=== PATIENT | male | born 1990 | race African-American/Black ===

== ENCOUNTER 2017-10-30 05:05 | Emergency (ER) | payer OTHER ==
[2017-10-30] MEDS ORDERED: AZITHROMYCIN 250 MG TABLET PO ONE (06:31)
[2017-10-30] MEDS ORDERED: AZITHROMYCIN 250 MG TABLET ONE (06:52)
--- NOTE | 2017-10-30 07:19 | ER Document Report ---
ED General - General Chief Complaint: Ear Pain Stated Complaint: ear pain Time Seen by Provider: 10/30/17 06:09 Mode of Arrival: Ambulatory Information source: Patient Notes: 27-year-old male presents with complaints of left earache of approximately 4 day duration. 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 He denies any fevers but admits to hot and cold flashes. He denies any recent ear infections or any infections Patient denies any drainage from the ear TRAVEL OUTSIDE OF THE [place] IN LAST 30 DAYS: No - HPI Onset: Other Onset/Duration: Persistent Quality of pain: Achy Severity: Mild Pain Level: 1 Associated symptoms: Earache Exacerbated by: Denies Relieved by: Denies Similar symptoms previously: No Recently seen / treated by doctor: No - Related Data Allergies/Adverse Reactions: Potassium Clavulanate * [From Augmentin] Adverse Reaction (Intermediate, Verified 04/28/14 17:40) Diarrhea amoxicillin trihydrate [From Augmentin] Adverse Reaction (Verified 04/28/14 17: 40) Diarrhea Past Medical History - Social History Smoking Status: Current Every Day Smoker Cigarette use (# per day): Yes Chew tobacco use (# tins/day): No Smoking Education Provided: No Frequency of alcohol use: None Drug Abuse: None Family History: CAD Patient has suicidal ideation: No Patient has homicidal ideation: No Renal/ Medical History: Denies: Hx Peritoneal Dialysis Past Surgical History: Reports: Hx Orthopedic Surgery - left X2, right X1 - Immunizations Hx Diphtheria, Pertussis, Tetanus Vaccination: Yes Review of Systems - Review of Systems Notes: REVIEW OF SYSTEMS: CONSTITUTIONAL : Denies fever, chills, or sweats. Denies recent illness. EENT: Admits to left earache CARDIOVASCULAR: Denies chest pain. Denies palpitations or racing or irregular heart beat. Denies ankle edema. RESPIRATORY: Denies cough, cold, or chest congestion. Denies shortness of breath, difficulty breathing, or wheezing. GASTROINTESTINAL: Denies abdominal pain or distention. Denies nausea, vomiting , or diarrhea. Denies blood in vomitus, stools, or per rectum. Denies black, tarry stools. Denies constipation. GENITOURINARY: Denies difficulty urinating, painful urination, burning, frequency, blood in urine, or discharge. MUSCULOSKELETAL: Denies back or neck pain or stiffness. Denies joint pain or swelling. SKIN: Denies rash, lesions or sores. HEMATOLOGIC : Denies easy bruising or bleeding. LYMPHATIC: Denies swollen, enlarged glands. NEUROLOGICAL: Denies confusion or altered mental status. Denies passing out or loss of consciousness. Denies dizziness or lightheadedness. Denies headache. Denies weakness or paralysis or loss of use of either side. Denies problems with gait or speech. Denies sensory loss, numbness, or tingling. Denies seizures. PSYCHIATRIC: Denies anxiety or stress. Denies depression, suicidal ideation, or homicidal ideation. ALL OTHER SYSTEMS REVIEWED AND NEGATIVE. Dictation was performed using [email or web address] voice recognition software PHYSICAL EXAMINATION: GENERAL: Well-appearing, well-nourished and in no acute distress. HEAD: Atraumatic, normocephalic. EYES: Pupils equal round extraocular movements intact, conjunctiva are normal. ENT: Right TM is erythematous left TM is dull in appearance erythematous loss of light reflex there is no tenderness over the mastoid process NECK: Normal range of motion LUNGS: No respiratory distress Musculoskeletal: Normal range of motion NEUROLOGICAL: Normal speech, normal gait. PSYCH: Normal mood, normal affect. SKIN: Warm, Dry, normal turgor, no rashes or lesions noted. Course - Re-evaluation Re-evalutation: 10/30/17 06:45 Patient's presentation is most consistent with an otitis media, there is no drainage, he has no risk factors for acute mastoiditis or malignant otitis externa, patient will be started on azithromycin given history of amoxicillin allergy. Otherwise he is well-appearing no distress After performing a Medical Screening Examination, I estimate there is LOW risk for malignant otitis media, mastoiditis, MENINGITIS, or ACUTE CORONARY SYNDROME , thus I consider the discharge disposition reasonable. I have reevaluated this patient multiple times and no significant life threatening changes are noted. The patient and I have discussed the diagnosis and risks, and we agree with discharging home to follow-up on an outpatient basis with the understanding that symptoms and presentations can change. We also discussed returning to the Emergency Department immediately if new or worsening symptoms occur. We have discussed the symptoms which are most concerning (e.g., high fevers, confusion) that necessitate immediate return. Discharge - Discharge Clinical Impression: Otitis media Qualifiers: Otitis media type: unspecified Chronicity: acute Qualified Code(s): H66.90 - Otitis media, unspecified, unspecified ear Otalgia Qualifiers: Laterality: left Qualified Code(s): H92.02 - Otalgia, left ear Condition: Stable Disposition: HOME, SELF-CARE Instructions: Otitis Media ([facility]) Additional Instructions: Follow up with your physician tomorrow for further care or return to the ED IMMEDIATELY if symptoms worsen or new concerns occur. If you cannot afford to follow up with your primary care physician a list of low cost clinics have been provided at the end of your discharge papers as well. Prescriptions: Azithromycin 250 mg PO ASDIR PRN #6 tablet PRN Reason: Forms: Return to Work
== END 2017-10-30 07:00 | disposition home or self-care (01) ==
LOC: ER 05:05
DX: H66.90 Otitis media, unspecified, unspecified ear (principal); H92.02 Otalgia, left ear; F17.210 Nicotine dependence, cigarettes, uncomplicated; Z88.3 Allergy status to other anti-infective agents
CPT/HCPCS: 99282

== ENCOUNTER 2019-07-24 17:47 | Emergency (ER) | payer BC, OTHER ==
[2019-07-24] MEDS ORDERED: LIDOCAINE 1% INJ-PF (10 MG/ML) 30 ML SDV INJ ONE (18:04)
[2019-07-24] MEDS ORDERED: DIPH/PERTUSS(ACELL)/TETANUS VAC/PF 0.5 ML SYR (>=10YO) IM ONE (18:05)
--- NOTE | 2019-07-24 18:05 | ER Document Report ---
ED General - General Chief Complaint: Finger Injury Stated Complaint: FINGER LACERATION Time Seen by Provider: 07/24/19 17:59 Primary Care Provider: ROSLYN MARRERO MD [COMMUNITY BASED STAFF] - Follow up in 1 week (for follow up for your elevated blood pressure) TRAVEL OUTSIDE OF THE [place] IN LAST 30 DAYS: No - HPI Notes: 28-year-old male to the emergency department with complaints of a finger laceration to his right pinky finger. He states that he was making food for his family and he went to mix some vegetables and accidentally cut his hand on a knife that was in the bowl. He states he is not up-to-date on his tetanus immunization. He states that he is right-hand dominant. He denies any other injuries. He states that the wound is still bleeding. - Related Data Allergies/Adverse Reactions: Potassium Clavulanate * [From Augmentin] Adverse Reaction (Intermediate, Verified 04/28/14 17:40) Diarrhea amoxicillin trihydrate [From Augmentin] Adverse Reaction (Verified 04/28/14 17:40) Diarrhea Past Medical History - Social History Smoking Status: Current Every Day Smoker Frequency of alcohol use: Social Drug Abuse: Marijuana Family History: CAD Patient has suicidal ideation: No Patient has homicidal ideation: No Renal/ Medical History: Denies: Hx Peritoneal Dialysis Past Surgical History: Reports: Hx Orthopedic Surgery - left X2, right X1 - Immunizations Hx Diphtheria, Pertussis, Tetanus Vaccination: Yes Physical Exam - Vital signs Vitals: Temp Pulse Resp BP Pulse Ox 98.6 F 62 16 184/110 H 100 07/24/19 17:54 07/24/19 17:54 07/24/19 17:54 07/24/19 17:54 07/24/19 17:54 Interpretation: Normal - General General appearance: Appears well, Alert - HEENT Head: Normocephalic, Atraumatic Eyes: Normal Pupils: PERRL - Respiratory Respiratory status: No respiratory distress Chest status: Nontender Breath sounds: Normal Chest palpation: Normal - Cardiovascular Rhythm: Regular Heart sounds: Normal auscultation Murmur: No - Abdominal Inspection: Normal Distension: No distension Bowel sounds: Normal Tenderness: Nontender Organomegaly: No organomegaly - Extremities Notes: There is a laceration to the distal right pinky finger on the lateral aspect. It does not affect the nailbed. It does not cross the joint lines. There is no evidence for foreign body. Patient has 5 out of 5 strength in all fingers exams to resistance in flexion and extension. Cap refill is less than 2 seconds. Radial pulses are intact and equal. Nontender to palpation of the right wrist right elbow and right shoulder. - Neurological Neuro grossly intact: Yes Cognition: Normal Orientation: AAOx4 [place] Coma Scale Eye Opening: Spontaneous [place] Coma Scale Verbal: Oriented [place] Coma Scale Motor: Obeys Commands [place] Coma Scale Total: 15 Speech: Normal Cranial nerves: Normal Cerebellar coordination: Normal. No: Gait ataxia Motor strength normal: LUE, RUE, LLE, RLE Additional motor exam normals: Equal secret code expert. No: Pronator drift Sensory: Normal - Psychological Associated symptoms: Normal affect, Normal mood - Skin Skin Temperature: Warm Skin Moisture: Dry Skin Color: Normal Course - Re-evaluation Re-evalutation: 07/24/19 Impression: Right pinky finger laceration. Patient tolerated repair well. Noted elevated blood pressure. We discussed this in length. We will have him follow-up with primary care physician. He is asymptomatic. But I encouraged him to have this monitored very closely. Updated his tetanus shot. Splinted the finger. Will discharge home. Suture removal in 7 days. - Vital Signs Vital signs: Temp Pulse Resp BP Pulse Ox 98.7 F 48 L 16 194/111 H 98 07/24/19 19:52 07/24/19 19:52 07/24/19 19:52 07/24/19 19:52 07/24/19 19:52 Procedures - Immobilization Right Finger 5th digit Pre-Proc Neuro Vasc Exam: Normal Immobilizer type: Finger splint (Static) Performed by: PCT Post-Proc Neuro Vasc Exam: Normal Alignment checked and good: Yes Discharge - Discharge Clinical Impression: Elevated blood pressure reading Finger laceration Qualifiers: Encounter type: initial encounter Finger: little finger Damage to nail status: without damage Foreign body presence: without foreign body Laterality: right Qualified Code(s): S61.216A - Laceration without foreign body of right little finger without damage to nail, initial encounter Condition: Stable Disposition: HOME, SELF-CARE Instructions: Laceration Care ([facility]), Tetanus Immunization Given ([facility]) Additional Instructions: Keep wound clean and dry. No soaking of the sutures for the next 3 days. Keep the finger splinted. Suture removal in 7 days. You also had elevated blood pressure here today in the emergency department. Please follow-up with primary care physician for further evaluation and management of this. Return if any worsening symptoms. Prescriptions: Naproxen [Naprosyn] 500 mg PO BID #20 tablet Forms: Return to Work Referrals: ROSLYN MARRERO MD [COMMUNITY BASED STAFF] - Follow up in 1 week (for follow up for your elevated blood pressure)
[2019-07-24 19:53] VITALS: BP 194/111
== END 2019-07-24 19:54 | disposition home or self-care (01) ==
LOC: ER 17:47
DX: S61.216A Laceration without foreign body of right little finger without damage to nail, initial encounter (principal); W26.0XXA Contact with knife, initial encounter; Y93.G1 Activity, food preparation and clean up; R03.0 Elevated blood-pressure reading, without diagnosis of hypertension; Z23 Encounter for immunization; F17.200 Nicotine dependence, unspecified, uncomplicated; F12.10 Cannabis abuse, uncomplicated
CPT/HCPCS: 99282; 90471; 90715; 12001; J3490

== ENCOUNTER 2019-08-02 16:30 | Emergency (ER) | payer BC ==
[2019-08-02 16:41] VITALS: BP 153/100
--- NOTE | 2019-08-02 17:12 | ER Document Report ---
HPI - HPI Time Seen by Provider: 08/02/19 17:09 Pain Level: Denies Notes: 28-year-old male patient presents emergency department chief complaint of request for suture removal. Patient had sutures placed to his right fifth digit. They replaced approximately 12 days ago. Patient reports healing well. - REPRODUCTIVE Reproductive: DENIES: : Past Medical History - General Information source: Patient - Social History Smoking Status: Current Every Day Smoker Frequency of alcohol use: None Drug Abuse: Marijuana Family History: CAD Patient has suicidal ideation: No Patient has homicidal ideation: No - Medical History Medical History: Negative Renal/ Medical History: Denies: Hx Peritoneal Dialysis Past Surgical History: Reports: Hx Orthopedic Surgery - left X2, right X1 - Immunizations Hx Diphtheria, Pertussis, Tetanus Vaccination: Yes Vertical Provider Document - CONSTITUTIONAL Notes: PHYSICAL EXAMINATION: GENERAL: Well-appearing, well-nourished and in no acute distress. HEAD: Atraumatic, normocephalic. EYES: Pupils equal round extraocular movements intact, conjunctiva are normal. ENT: Nares patent NECK: Normal range of motion LUNGS: No respiratory distress Musculoskeletal: Normal range of motion NEUROLOGICAL: Normal speech, normal gait. PSYCH: Normal mood, normal affect. SKIN: Healing laceration noted to right fourth digit. No surrounding erythema. - INFECTION CONTROL TRAVEL OUTSIDE OF THE [place] IN LAST 30 DAYS: No Course - Re-evaluation Re-evalutation: 08/02/19 17:10 Sutures removed, patient tolerated well. Patient discharged home in stable condition. - Vital Signs Vital signs: Temp Pulse Resp BP Pulse Ox 98.4 F 82 20 153/100 H 98 08/02/19 16:40 08/02/19 16:40 08/02/19 16:40 08/02/19 16:40 08/02/19 16:40 Discharge - Discharge Clinical Impression: Visit for suture removal Condition: Stable Disposition: HOME, SELF-CARE Additional Instructions: Please continue to keep an eye on the area. It appears to be healing well. Wash with soap and water as per your usual. Follow-up with your primary care provider if you notice increased redness, swelling or drainage from the area.
== END 2019-08-02 17:15 | disposition home or self-care (01) ==
LOC: ER 16:30
DX: S61.216D Laceration without foreign body of right little finger without damage to nail, subsequent encounter (principal); X58.XXXD Exposure to other specified factors, subsequent encounter